=== PATIENT | female | born 1990 | race Caucasian/White ===

== ENCOUNTER 2016-08-24 11:22 | Emergency (ER) | payer MEDICAID ==
[~2016-08-24] VITALS: Ht 162.6 cm; Wt 63.5 kg
[2016-08-24 11:24] VITALS: Ht 162.6 cm; Wt 63.5 kg
[2016-08-24] MEDS ORDERED: ONDANSETRON (ODT) 4 MG TAB ODT STA (12:35)
[2016-08-24] MEDS ORDERED: MECLIZINE 12.5 MG TAB PO ONE (13:00)
--- NOTE | 2016-08-24 13:16 | RADRPT ---
PROCEDURE: Chest x-ray CLINICAL INDICATION: Cough. TECHNIQUE: One-view frontal. COMPARISON: None available FINDINGS: The cardiac silhouette is normal. No infiltrates are noted. No hilar abnormalities are identified. No pneumothorax or pleural effusions are visualized. IMPRESSION: 1. No active cardiopulmonary changes. RPTAT: HH .Pancho Lubin MD, MD Date Time Electronically viewed and signed by .Pancho Lubin MD, on 08/24/2016 13:16 .G/
[2016-08-24 13:17] LABS: BASOPHIL # 0.1 10^3/ul (0.0-0.1); BASOPHILS % 1.3 % (0.0-2.0); EOSINOPHILS % 0.3 % (0.0-7.0); HEMATOCRIT 28.3 % (37.0-47.0); HEMOGLOBIN 8.7 g/dl (12.0-16.0); LYMPHOCYTES # 2.3 10^3/ul (0.8-2.9); LYMPHOCYTES % 38.6 % (15.0-51.0); MEAN CORPUSCULAR HGB CONC 30.7 g/dl (32.0-37.0); MEAN CORPUSCULAR VOLUME 65.1 fl (82.0-101.0); MEAN PLATELET VOLUME 7.9 fl (7.4-10.4); MONOCYTE # 0.4 10^3/ul (0.3-0.9); MONOCYTES % 6.3 % (0.0-11.0); NEUTROPHIL # 3.1 10^3/ul (1.6-7.5); NEUTROPHILS % 53.5 % (39.0-77.0); PLATELET COUNT 325 10^3/UL (140-440); RED BLOOD COUNT 4.35 10^6/ul (4.20-5.40); RED CELL DISTRIBUTION WIDTH 18.2 % (11.5-14.5); UNCORRECTED WBC 5.9 10^3/ul (4.8-10.8); WHITE BLOOD COUNT 5.9 10^3/ul (4.8-10.8)
[2016-08-24 13:19] LABS: CONDITION 1; LH ANALYZER COMMENTS 1
[2016-08-24 13:33] LABS: ALBUMIN 4.8 g/dl (3.3-4.9)
[2016-08-24 13:34] LABS: POTASSIUM 3.7 mmol/L (3.5-5.1)
[2016-08-24 13:36] LABS: ALBUMIN/GLOBULIN RATIO 1.29; BILIRUBIN,INDIRECT 0.3 mg/dl (0-1.1); BILIRUBIN,TOTAL 0.3 mg/dl (0.2-1.3); CREATININE 0.49 mg/dl (0.44-1.00); TOTAL PROTEIN 8.5 g/dl (6.1-8.1)
[2016-08-24 13:37] LABS: CALCIUM 9.5 mg/dl (8.4-10.2)
[2016-08-24 13:45] LABS: URINE BLOOD (Dip) POC Negative (NEGATIVE)
[2016-08-24] MEDS ORDERED: FER325 PO (15:58)
[2016-08-24] MEDS ORDERED: ONDA4TAB8 PO (15:59)
[2016-08-24] MEDS ORDERED: MECL12.574 PO (15:59)
[2016-08-24 16:07] VITALS: BP 109/56; PULSE 69; RESP 18; TEMP 98.2
--- NOTE | 2016-08-24 16:16 | ERD ---
ER Documentation Chief Complaint Date/Time DATE: 08/24/16 TIME: 16:02 Chief Complaint DIZZINESS STARTED YESTERDAY,WORST TODAY HPI This is a 26-year-old female presents emergency department for dizziness and nausea that started yesterday. Patient states symptoms worsened Today. Patient also reports light vaginal spotting starting yesterday. Denies chance of . Last menstrual period was 2 weeks ago. No vomiting or abdominal pain. Patient has decreased appetite however can tolerate oral intake. Dizziness and nausea worsened with standing. Patient has history of chronic anemia and used to be on oral iron 3 times a day. No fevers. Denies palpitations, weakness, fatigue or syncopal episodes. Denies blurry vision. No recent illness. No recent ear infection. ROS All systems reviewed and are negative except as per history of present illness. Medications Home Meds Active Scripts Ondansetron Hcl* (Zofran*) 4 Mg Tablet, 4 MG PO Q6H for NAUSEA AND/OR VOMITING, #15 TAB Prov:CHASTITY BRUSH NP 08/24/16 Meclizine Hcl* (Antivert*) 12.5 Mg Tab, 12.5 MG PO Q6H Y for DIZZINESS, #20 TAB Prov:CHASTITY BRUSH NP 08/24/16 Ferrous Sulfate* (Ferrous Sulfate*) 325 Mg Tabec, 325 MG PO DAILY, #15 TAB Prov:CHASTITY BRUSH NP 08/24/16 Allergies Allergies: Coded Allergies: No Known Allergy (Unverified , 01/08/16) PMhx/Soc History of Surgery: Yes () Anesthesia Reaction: No Hx Respiratory Disorders: Yes (asthma) Hx Miscellaneous Medical Probl: Yes (gall stones) Hx Alcohol Use: No Hx Substance Use: No Hx Tobacco Use: No Smoking Status: Never smoker Physical Exam Vitals Vital Signs Date Time Temp Pulse Resp B/P Pulse Ox O2 Delivery O2 Flow Rate FiO2 08/24/16 13:30 111/62 118/68 119/73 08/24/16 11:24 97.9 114 18 137/79 98 Physical Exam Const: No acute distress, alert Head: Atraumatic Eyes: Normal Conjunctiva. PERRL no erythema or exudate posterior pharynx. ENT: Normal External Ears, Nose and Mouth. Neck: Full range of motion..~ No meningismus. No lymphadenopathy Resp: Clear to auscultation bilaterally. No wheezing, rhonchi or crackles. Cardio: Regular rate and rhythm, no murmurs Abd: Soft, non tender, non distended. Normal bowel sounds Skin: No petechiae or rashes Back: No midline or flank tenderness Ext: No cyanosis, or edema Neur: Awake and alert. Positive Preston-Hallpike maneuver. Psych: Normal Mood and Affect Result Diagram: 08/24/16 1305 08/24/16 1305 Results 24 hrs Laboratory Tests Test 08/24/16 13:05 08/24/16 13:45 Alanine Aminotransferase (ALT/SGPT) 66IU/L Albumin 4.8g/dl Albumin/Globulin Ratio 1.29 Alkaline Phosphatase 132IU/L Anion Gap 20 Aspartate Amino Transf (AST/SGOT) 84IU/L Basophils # 0.110^3/ul Basophils % 1.3% Blood Morphology Comment Blood Urea Nitrogen 9mg/dl Calcium Level 9.5mg/dl Carbon Dioxide Level 26mmol/L Chloride Level 101mmol/L Creatinine 0.49mg/dl Direct Bilirubin 0.00mg/dl Eosinophils # 0.010^3/ul Eosinophils % 0.3% Globulin 3.70g/dl Glucose Level 94mg/dl Hematocrit 28.3% Hemoglobin 8.7g/dl Indirect Bilirubin 0.3mg/dl Lymphocytes # 2.310^3/ul Lymphocytes % 38.6% Mean Corpuscular Hemoglobin 20.0pg Mean Corpuscular Hemoglobin Concent 30.7g/dl Mean Corpuscular Volume 65.1fl Mean Platelet Volume 7.9fl Monocytes # 0.410^3/ul Monocytes % 6.3% Neutrophils # 3.110^3/ul Neutrophils % 53.5% Nucleated Red Blood Cells # 0.010^3/ul Nucleated Red Blood Cells % 0.0/100WBC Platelet Count 98361^3/UL Potassium Level 3.7mmol/L Red Blood Count 4.3510^6/ul Red Cell Distribution Width 18.2% Sodium Level 143mmol/L Total Bilirubin 0.3mg/dl Total Protein 8.5g/dl White Blood Count 5.910^3/ul Bedside Urine Blood Negative Bedside Urine Glucose (UA) Negative Bedside Urine Ketones (LAB) Negative Bedside Urine Leukocyte Esterase (L Negative Bedside Urine Nitrite (LAB) Negative Bedside Urine Protein (LAB) Negative Bedside Urine pH (LAB) 7.0 Current Medications Medications (Trade) Dose Ordered Sig/Jm Route PRN Reason Start Time Stop Time Status Last Admin Dose Admin Ondansetron HCl (Zofran Odt) 4 mg ONCE STAT ODT 08/24/16 12:35 08/24/16 12:37 DC 08/24/16 12:46 Meclizine HCl (Antivert) 25 mg ONCE ONCE PO 08/24/16 13:00 08/24/16 13:01 DC 08/24/16 12:46 Procedures/MDM ED COURSE: The patient was stable throughout ED course. I kept the patient and/or family informed of laboratory and diagnostic imaging results throughout the ED course. Laboratory CBC shows Hgb 8.7, hematocrit 28.3 and normal platelets CMP shows anion gap 20, AST 84, alkaline phosphatase 132 Urine is negative Imaging Patient: KENTRELL HUBBARD : 1990 Age: 26 Sex: F MR #: [id number] DOS: 08/24/16 1233 Ordering MD: CHASTITY BRUSH NP Location: [facility] Room/Bed: PROCEDURE: Chest x-ray CLINICAL INDICATION: Cough. TECHNIQUE: One-view frontal. COMPARISON: None available FINDINGS: The cardiac silhouette is normal. No infiltrates are noted. No hilar abnormalities are identified. No pneumothorax or pleural effusions are visualized. IMPRESSION: 1. No active cardiopulmonary changes. EKG: As interpreted by Dr. Lopez Rate/Rhythm: Normal sinus rhythm QRS, ST, T-waves: No changes consistent w/ acute ischemia Impression: No evidence of ischemia or arrhythmia MDM:26 year old female presents to ER with dizziness and nausea since yesterday and symptoms worsened today. No abdominal pain, vomiting or diarrhea. No fevers. No cough, shortness breath or difficulty breathing. Vital signs remained stable. Patient given meclizine and Zofran and symptoms improved. Labs show hemoglobin 8.7 with hematocrit 28.3. CMP shows anion gap 20, AST 84, alkaline phosphatase 132. Patient tolerating p.o. fluids. Discussed findings with Dr. Daugherty and we agreed that patient is appropriate for outpatient management and does not need blood transfusion at this time. Patient reports having vaginal spotting yesterday but none today. No vaginal discharge or itching. No dysuria or hematuria. Patient likely has BPPV vs. anemia. Low suspicion for intestinal bleed, hemorrhage,lethal arrhythmia or brain mass. Patient is appropriate for outpatient management and will be discharged with ferrous sulfate, meclizine and antivert. Instructed patient to follow-up with primary care provider in the next 2-3 days. Return to ED for any high fever, chest pain, difficulty breathing, shortness breath, wheezing, vomiting, diarrhea , abdominal pain or any new or worsening symptoms. Patient verbalizes understanding. All questions answered at discharge. Departure Diagnosis: Primary Impression: Dizziness Condition: Stable Patient Instructions: Dizziness, Unk Cause Referrals: COMMUNITY CLINICS YOU HAVE RECEIVED A MEDICAL SCREENING EXAM AND THE RESULTS INDICATE THAT YOU DO NOT HAVE A CONDITION THAT REQUIRES URGENT TREATMENT IN THE EMERGENCY DEPARTMENT. FURTHER EVALUATION AND TREATMENT OF YOUR CONDITION CAN WAIT UNTIL YOU ARE SEEN IN YOUR DOCTORS OFFICE WITHIN THE NEXT 1-2 DAYS. IT IS YOUR RESPONSIBILITY TO MAKE AN APPOINTMENT FOR FOLOW-UP CARE. IF YOU HAVE A PRIMARY DOCTOR --you should call your primary doctor and schedule an appointment IF YOU DO NOT HAVE A PRIMARY DOCTOR YOU CAN CALL OUR PHYSICIAN REFERRAL HOTLINE AT IF YOU CAN NOT AFFORD TO SEE A PHYSICIAN YOU CAN CHOSE FROM THE FOLLOWING [facility] [address] [facility]. [facility] [address] [facility] [facility] [address] [facility] [address] [facility]. [facility] [address] [facility]. [facility]. [address] [facility]. [facility] YOU HAVE RECEIVED A MEDICAL SCREENING EXAM AND THE RESULTS INDICATE THAT YOU DO NOT HAVE A CONDITION THAT REQUIRES URGENT TREATMENT IN THE EMERGENCY DEPARTMENT. FURTHER EVALUATION AND TREATMENT OF YOUR CONDITION CAN WAIT UNTIL YOU ARE SEEN IN YOUR DOCTORS OFFICE WITHIN THE NEXT 1-2 DAYS. IT IS YOUR RESPONSIBILITY TO MAKE AN APPOINTMENT FOR FOLOW-UP CARE. IF YOU HAVE A PRIMARY DOCTOR --you should call your primary doctor and schedule and appointment IF YOU DO NOT HAVE A PRIMARY DOCTOR YOU CAN CALL OUR PHYSICIAN REFERRAL HOTLINE AT . IF YOU CAN NOT AFFORD TO SEE A PHYSICIAN YOU CAN CHOSE FROM THE FOLLOWING [facility] INSTITUTIONS: [facility] [address] [place] [address] [facility] [address] [place] [address] [facility] [address] [place] [address] Additional Instructions: Call your primary care doctor TOMORROW for an appointment during the next 2-3 days.See the doctor sooner or return here if your condition worsens before your appointment time. Return to ED for any high fever, chest pain, difficulty breathing, shortness breath, wheezing, vomiting, diarrhea, abdominal pain or any new or worsening symptoms. CHASTITY BRUSH NP Aug 24, 2016 16:13
== END 2016-08-24 16:08 | disposition home or self-care (01) ==
LOC: FTE 11:22
DX: R42 Dizziness and giddiness (principal); R11.0 Nausea; J45.909 Unspecified asthma, uncomplicated
CPT/HCPCS: 71010; 80053; 81003; 85025; 93005; Z7502; Z7610